=== PATIENT | male | born 1975 | race Caucasian/White ===

== ENCOUNTER 2018-11-26 14:51 | Emergency (ER) | payer BC ==
[2018-11-26] MEDS ORDERED: PROPARACAINE HCL OPTH 15ML BTL OPTH ONE (14:56)
--- NOTE | 2018-11-26 15:33 | Emergency Department Record ---
History of Present Illness - General Chief complaint: Eye Problem Stated complaint: LT EYE FOREIGN OBJECT Time Seen by Provider: 11/26/18 15:17 Source: Patient Mode of Arrival: Ambulatory Limitations: No limitations - History of Present Illness Initial comments: The patient thinks he got something in his L eye yesterday while working in his garage. He did wash his L eye out at home but still has the sensation. The patient does have mild photophobia but denies any direct trauma. He does not wear contacts. chief complaint: Eye pain, Foreign body Onset/Timin -: Days(s) Location: Left eye Eye Symptoms: Blurry vision, Foreign body sensation, Photophobia - Related Data Visual acuity (L) = 20/: 25 Visual acuity (R) = 20/: 20 With correction: Yes Hx Tetanus Toxoid Vaccination: Yes Year of Tetanus Vaccination: 2009 Home Medications Medication Instructions Recorded Confirmed Last Taken No Home Med [NO HOME MEDS] 11/26/18 11/26/18 Unknown Allergies Allergy/AdvReac Type Severity Reaction Status Date / Time Penicillins Allergy RASH Verified 11/26/18 15:08 Travel Screening - Travel/Exposure Within Last 30 Days Have you traveled within the last 30 days?: No - Travel/Exposure Within Last Year Have you traveled outside the [place] in the last year?: No - Additonal Travel Details Have you been exposed to anyone with a communicable illness?: No - Travel Symptoms Symptom Screening: None Review of Systems Constitutional: Denies: Chills, Fever Eyes: Reports: Eye pain. Denies: Eye discharge ENT: Denies: Congestion Respiratory: Denies: Cough, Dyspnea Past Medical History - SOCIAL HISTORY Smoking Status: Current some day smoker Alcohol Use: Occasional Drug Use: None - RESPIRATORY Hx Respiratory Disorders: No - CARDIOVASCULAR Hx Cardio Disorders: No - NEURO Hx Neuro Disorders: No - GI Hx GI Disorders: No - Hx Genitourinary Disorders: No - ENDOCRINE Hx Endocrine Disorders: No - MUSCULOSKELETAL Hx Musculoskeletal Disorders: Yes Hx Arthritis: Yes - PSYCH Hx Psych Problems: No - HEMATOLOGY/ONCOLOGY Hx Hematology/Oncology Disorders: No Family Medical History Any Significant Family History?: No Hx Heart Disease: Grandparents Physical Exam - General General Appearance: Alert, Cooperative, No acute distress - Head Head exam: Atraumatic, Normocephalic - Eye Eye exam: PERRL, Conjunctival injection (Mild L eye.), EOMI, Other (There is a FB imbedded in the L cornea at the 9:00 position. The FB also does light up with flourescein. There is no FB on lid eversion.). negative: Normal appearance , Periorbital swelling, Periorbital tenderness With correction: Yes Course Vital Signs 11/26/18 14:56 Temperature 98.6 F Pulse Rate 86 Respiratory 16 Rate Blood Pressure 117/80 Pulse Ox 95 - Reevaluation(s) Reevaluation #1: I did discuss the case with Dr. Quick and he would like to see the patient at 7 :45 am tomorrow morning at his [place] office. The patient agrees with the plan. 11/26/18 15:56 Disposition Disposition: Discharge Clinical Impression: Corneal foreign body Qualifiers: Encounter type: initial encounter Laterality: left Qualified Code(s): T15.02XA - Foreign body in cornea, left eye, initial encounter Disposition: Home, Self-Care Condition: (2) Stable Instructions: Eye Foreign Body (ED) Additional Instructions: Please use the Emycin ointment 1 cm to the L eye 4 times a day for [address] Quick tomorrow morning in his [place] office at 7:45 am. Referrals: GLORIA QUICK [MEDICAL DOCTOR] - Forms: Patient Portal Access Time of Disposition: 15:58 Quality - Quality Measures Quality Measures: N/A - Blood Pressure Screening View Details: Yes Does Patient Have Any of the Following: No Blood Pressure Classification: Normal BP Reading Systolic Measurement: 118 Diastolic Measurement: 77 Screening for High Blood Pressure: < Normal BP, F/U Not Required > [[id number]]
[2018-11-26] MEDS ORDERED: ERYTHROMYCIN OPTH OINT 3.5GM OPTH ONE (15:55)
== END 2018-11-26 16:15 | disposition home or self-care (01) ==
LOC: ER 14:51
DX: T15.02XA Foreign body in cornea, left eye, initial encounter (principal); W22.8XXA Striking against or struck by other objects, initial encounter; Y92.008 Other place in unspecified non-institutional (private) residence as the place of occurrence of the external cause; F17.210 Nicotine dependence, cigarettes, uncomplicated
CPT/HCPCS: 99283